=== PATIENT | female | born 1950 | race Hispanic/Latino ===

== ENCOUNTER 2024-12-25 12:22 | Emergency (ER) | payer MEDICARE ==
[~2024-12-25] VITALS: Ht 152.4 cm; Wt 87.1 kg
[2024-12-25] MEDS ORDERED: LASIX20 MG PO (15:31)
[2024-12-25 15:49] VITALS: PULSE 78; RESP 16; TEMP 98.4
[2024-12-25 15:56] VITALS: BP 172/76; PULSE 78; RESP 18; TEMP 98.4; O2SAT 97
== END 2024-12-25 16:00 | disposition home or self-care (01) ==
LOC: FSED 12:30
DX: D64.9 Anemia, unspecified (principal); N28.9 Disorder of kidney and ureter, unspecified; I12.9 Hypertensive chronic kidney disease with stage 1 through stage 4 chronic kidney disease, or unspecified chronic kidney disease; E11.22 Type 2 diabetes mellitus with diabetic chronic kidney disease; E11.65 Type 2 diabetes mellitus with hyperglycemia; E03.9 Hypothyroidism, unspecified; Z95.810 Presence of automatic (implantable) cardiac defibrillator; Z86.73 Personal history of transient ischemic attack (TIA), and cerebral infarction without residual deficits
CPT/HCPCS: 71046; 80053; 81003; 83880; 85025; 93005; 99284

== ENCOUNTER → 2025-02-06 | Outpatient (REF) | payer MEDICARE ==
[~2025-02-06] MED LIST: LASIX20 MG PO; REGADENOSON 0.4 MG/5 ML SYR IV ONE
== END ==
LOC: NM 08:11
PROVIDERS: ATTEND Internal Medicine Cardiovascular Disease
DX: I50.30 Unspecified diastolic (congestive) heart failure (principal)
CPT/HCPCS: 78452; 93017; A9502; J2785